=== PATIENT | male | born 1950 ===

== ENCOUNTER 2017-08-27 08:02 | Day surgery (SDC) | payer MEDICARE, BC ==
--- NOTE | 2017-08-12 14:44 | HP ---
PREOPERATIVE HISTORY AND PHYSICAL: DATE OF SURGERY/ADMISSION: 08/27/17. DATE OF OFFICE VISIT/ENCOUNTER: 08/11/17. ATTENDING SURGEON: May Brownlee MD* (dictated by MARY Muir). PRIMARY CARE PHYSICIAN: Dr. Amada Fraser. PROCEDURE: Right wrist carpal tunnel release, ulnar nerve decompression at the elbow. CHIEF COMPLAINT: Numbness and tingling, right hand. HISTORY OF PRESENT ILLNESS: This is a 67-year-old male, who complains of numbness and tingling in his right hand primarily involving the middle, ring and small finger. Symptoms have been ongoing for quite sometime now. He has trouble holding things in his hands and often times drops things. He is a diabetic. He recently had an EMG/nerve conduction study, which showed ulnar neuropathy at the elbow and carpal tunnel syndrome bilaterally along with peripheral neuropathy. He is interested in pursuing surgical intervention for this problem in his right upper extremity and has consented to proceed with a right wrist tunnel release and an ulnar nerve decompression at the elbow. The patient has a medical history including hypothyroidism, hypertension, and placement of three stents several years ago. He has not had any recent cardiac issues. He is on prasugrel HCL daily and we will plan on having him stay on this medication perioperatively. We will receive clearance from his primary care physician, Dr. Amada Fraser prior to proceeding with surgery. PAST MEDICAL HISTORY: 1. Diabetes. 2. Hypertension. 3. Hypothyroid. 4. History of myocardial infarction approximately eight years ago. 5. History of blood clot in one of his cardiac stents that was later replaced. PAST SURGICAL HISTORY: 1. Cardiac stent placement x3. 2. Left knee surgery. 3. Left carpal tunnel release. CURRENT MEDICATIONS: 1. Aspirin 81 mg daily. 2. Benzonatate 200 mg. 3. Hydroxyzine HCl 25 mg daily. 4. Januvia 100 mg daily. 5. Lisinopril 10 mg daily. 6. Metformin HCl 1000 mg twice a day. 7. Metoprolol succinate ER 100 mg daily. 8. Prasugrel HCl 10 mg daily. 9. Synthroid 200 mcg daily. ALLERGIES: CODEINE causes hallucinations. FAMILY MEDICAL HISTORY: Alzheimer's, lung and thyroid cancer. 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 He is a longtime smoker. He smokes approximately two packs per day and has done so for the past 60 years. He denies recreational drug use and does not drink alcohol. REVIEW OF SYSTEMS: General: Negative for fevers, chills or night sweats. Unexplained weight loss/gain. No known anesthesia problems. HEENT: Negative for headache, lightheadedness or syncopal episodes. Negative for visual changes. Positive for hearing changes. Integumentary: Negative for abrasions, lesions or open wounds. Cardiothoracic: Positive for hypertension. Negative chest pain, palpitations, and edema. Respiratory: Positive for shortness of breath with exertion, chronic cough. : Negative for nocturia, urinary frequency, urgency, history of UTIs and kidney problems. GI: Positive for diarrhea. Negative for nausea, vomiting, constipation. Musculoskeletal: Positive for current complaint. Neurological: Negative for paresthesias, numbness, history of seizure, stroke, poor balance. Endocrine: Positive for diabetes and hypothyroid. Hematologic: Negative for easy bruising, anemia, bleeding disorders. Infectious Disease: Negative for history of MRSA, hepatitis C, HIV. PHYSICAL EXAMINATION GENERAL: Well-developed, well-nourished 67-year-old male in no acute distress. VITAL SIGNS: Height 5 feet 10 inches, weight 181pounds, blood pressure 138/76. HEENT: Normocephalic, atraumatic. Pupils are equal, round, and reactive to light and accommodation. NECK: Supple. No palpable lymph nodes. Throat is clear. PULMONARY: Lungs are clear to auscultation bilaterally. No wheezes, rales, or rhonchi. CARDIOVASCULAR: Regular rate and rhythm. S1, S2. No murmurs, rubs or gallops. No edema. ABDOMEN: Positive bowel sounds, soft, nontender. NEUROLOGIC: Alert and oriented x3. Cranial nerves II through XII are intact. Sensation is intact to light touch. MUSCULOSKELETAL: On exam of his right upper extremity, he has decreased sensation in the ulnar three fingers of his right hand. He has significant interosseous wasting and thenar wasting as well. He has weakness with thumb abduction and finger abduction. Skin is intact. IMAGING STUDIES: EMG/nerve conduction study shows bilateral carpal tunnel syndrome and ulnar compression at the right elbow. IMPRESSION: Bilateral carpal syndrome, ulnar nerve. Compression at the right elbow. PLAN: The patient is scheduled to undergo a right wrist carpal tunnel release and an ulnar nerve decompression at the elbow with Dr. Brownlee on 08/27/17. He will return to the office 10 days postop for followup and suture removal. A prescription of Evart was e-scribed to the patient's pharmacy for postoperative pain management. He will get clearance in his primary care physician, Dr. Fraser prior to proceeding with surgery. MARY MUIR [id number]/[facility] #: [id number] MTDIan
[~2017-08-27 08:02] MED LIST: Buffered Lidocaine 0.9% SYRIN* 5 ML/SYR SYRINGE INTRADERM ONE
[2017-08-27] MEDS ORDERED: ceFAZolin 2 GM PREMIX (*) 2 GM/50 ML BAG IVPB ONE (08:16)
[2017-08-27] MEDS ORDERED: Insulin LISPRO* 1 UNITS UNIT SUBCUT ONE (08:33)
[2017-08-27] MEDS ORDERED: Propofol* 10 MG/ML 20 ML BTL IV PUSH ONE (08:49)
[2017-08-27] MEDS ORDERED: Midazolam* 1 MG/ML 2 ML VIAL (2 MG) ONE (08:49)
[2017-08-27] MEDS ORDERED: fentaNYL* 50 MCG/ML 2 ML VIAL (100 MCG VIAL) ONE (08:49)
[2017-08-27] MEDS ORDERED: Naloxone* 0.4 MG/ML 1 ML VIAL IV PRN (09:12)
[2017-08-27 10:20] VITALS: BP 128/64
--- NOTE | 2017-08-28 03:46 | OP ---
DATE OF OPERATION: 08/27/17 [facility] DATE OF : 46 SURGEON: May Brownlee MD LAUNDROMAT MANAGER: MARY Muir ANESTHESIA: Local MAC. PRE-OP DIAGNOSIS: Right ulnar nerve compression at the elbow and right carpal tunnel syndrome. POST-OP DIAGNOSIS: Right ulnar nerve compression at the elbow and right carpal tunnel syndrome. OPERATIVE PROCEDURE: Right ulnar nerve decompression of the elbow and right carpal tunnel release. ESTIMATED BLOOD LOSS: Zero. TOURNIQUET TIME: About 30 minutes. INDICATION FOR PROCEDURE: Bryon is a 67-year-old man with numbness and tingling in his right hand mainly involving the middle, ring, and small fingers. Nerve conduction study shows ulnar nerve compression at the elbow and median nerve compression at the wrist. He presents for decompression of both nerves. DESCRIPTION OF PROCEDURE: The patient was brought to the operating room, was given a sedation anesthetic and a local infiltration of 10 cc of 1% plain lidocaine at the right elbow with additional 8 during the procedure and 10 cc of 1% plain lidocaine in the palm of the right hand. The hand and forearm were prepped and draped in the usual sterile fashion. The hand and forearm were exsanguinated and tourniquet elevated to 250 mmHg. A curvilinear incision was made between the medial epicondyle and the tip of the olecranon process. We dissected through the subcutaneous tissue. There were several branches of the medial and brachial cutaneous nerve and these were preserved. The ulnar nerve was then carefully dissected away from Sparrow's ligament. The ligament was transected and then the nerve was dissected out proximal for several centimeters and distal into the FCU muscle. The superficial and deep portion of the FCU fascia were both divided and then the nerve was completely freed up proximal and distal to the elbow. There was no sharp edge of the medial intramuscular septum. The wound was irrigated and the subcutaneous tissue closed with 2-0 Vicryl suture and the skin edges were reapproximated with 4-0 nylon suture. Next, a longitudinal incision was made in the palm in line with the ring finger of the right hand, dissected through the subcutaneous tissue down to the transverse carpal ligament. The ligament was divided sharply with a knife and then more proximally with the scissors. The nerve was dissected free from the surrounding tissue and there was an area of moderate compression of the mid portion of the ligament. The wound was irrigated and the skin edges reapproximated with 4-0 nylon suture. The wounds were dressed with Xeroform, 4x4 , Webril and an Jamie wrap. The patient tolerated the procedure well and brought to the recovery room in good condition. [id number]/[facility] #: [id number] MTDD
== END 2017-08-27 10:26 | disposition home or self-care (01) ==
LOC: OREAST 08:02
PROVIDERS: ATTEND Orthopaedic Surgery
DX: G56.21 Lesion of ulnar nerve, right upper limb (principal); G56.01 Carpal tunnel syndrome, right upper limb; E11.9 Type 2 diabetes mellitus without complications; I10 Essential (primary) hypertension; E03.9 Hypothyroidism, unspecified; F17.210 Nicotine dependence, cigarettes, uncomplicated; Z79.82 Long term (current) use of aspirin; Z88.5 Allergy status to narcotic agent
CPT/HCPCS: J0690; J2250; J2704; J3010